=== PATIENT | female | born 1965 | race Two or more races ===

== ENCOUNTER 2017-03-29 18:49 | Emergency (ER) | payer MEDICAID ==
[~2017-03-29] VITALS: Ht 162.6 cm; Wt 83.9 kg
[~2017-03-29 18:49] MED LIST: CIPRO500 MG PO; CYCLOBENZAPRINE10 MG ORAL; KEFLEX500 MG ORAL; LOSARTAN POTASS50 MG ORAL; NORCO 5-325 TA1 EACH ORAL; OMEPRAZOLE20 M2 ORAL; PHENAZOPYRIDIN200 MG ORAL; PROZAC10 MG ORAL
--- NOTE | 2017-03-29 19:10 | Emergency Room Report ---
History of Present Illness General Chief Complaint: Abdominal Pain Source: Patient Present Illness HPI 51YOF without known PMHx presents with right lower pelvic, non-radiating, sharp , 8/10, intermittent for 1 week. Assoc with vaginal bleeding last night (LMP was 1 year prior). No history of renal stones, uterine fibroids, ovarian cysts. No history of gall stones. Was tx for UTI 2 weeks prior with Cipro for 1 week. Allergies: Coded Allergies: No Known Allergies (Unverified , 05/07/15) Patient History Past Medical History: none Past Surgical History: none Pertinent Family History: none Social History: Denies: alcohol use, drug use, smoking Now: No Immunizations: UTD Reviewed Nursing Documentation: PMH: Agreed, PSxH: Agreed Nursing Documentation-PMH Hx Hypertension: Yes Hx Gastrointestinal Problems: Yes - Acid reflux, Review of Systems All Other Systems: negative except mentioned in HPI Physical Exam Vital Signs Date Time Temp Pulse Resp B/P Pulse Ox O2 Delivery O2 Flow Rate FiO2 03/29/17 18:51 97.9 64 14 128/71 98 Room Air Sp02 EP Interpretation: reviewed, normal General Appearance: normal inspection, well appearing, no apparent distress, alert, GCS 15, non-toxic Head: normocephalic, atraumatic Eyes: bilateral eye EOMI, bilateral eye PERRL ENT: normal ENT inspection, hearing grossly normal, normal voice Neck: normal inspection, full range of motion, supple, no bony tend Respiratory: normal inspection, lungs clear, normal breath sounds, no respiratory distress, no retraction, no wheezing Cardiovascular #1: regular rate, rhythm, no edema Gastrointestinal: normal inspection, normal bowel sounds, non tender, soft, no guarding, no hernia Genitourinary: no CVA tenderness Musculoskeletal: normal inspection, back normal, normal range of motion, Sepideh' s Sign negative Neurologic: normal inspection, alert, oriented x3, responsive, mechanical intern III-XII nml as tested, motor strength/tone normal, speech normal Psychiatric: normal inspection, judgement/insight normal, mood/affect normal Skin: normal inspection, normal color, no rash Lymphatic: normal inspection Medical Decision Making Diagnostic Impression: Primary Impression: Right sided abdominal pain Additional Impression: UTI (lower urinary tract infection) ER Course Right lower abd pain - Urine preg negative - UA: nitrite positive - Labs: No leuks. H&H stable - Pelvic sono: "complicated anatomy" per tech. "possible fibroid." No other acute abnormalities Likely recurrent or improperly treated UTI Rx Macrobid Followup with Urine Cx Recommend outpatient pelvic MRI DC home EKG Diagnostic Results Rate: normal Rhythm: NSR ST Segments: no acute changes ASA given to the pt in ED: No Rhythm Strip Diag. Results EP Interpretation: yes Rate: 75 Rhythm: NSR, no PVC's, no ectopy Last Vital Signs Date Time Temp Pulse Resp B/P Pulse Ox O2 Delivery O2 Flow Rate FiO2 03/29/17 18:51 97.9 64 14 128/71 98 Room Air Status: improved Disposition: HOME, SELF-CARE Scripts Nitrofurantoin Monohyd/M-Cryst* (MACROBID 100 MG*) 100 Mg Capsule 100 MG ORAL EVERY 12 HOURS for 7 Days, #14 CAP Prov: YAW HEWITT M.D. 03/29/17 YAW HEWITT M.D. March 29, 2017 19:10
[2017-03-29] MEDS ORDERED: Ketorolac 30mg Inj IV ONE (19:15)
[2017-03-29] MEDS ORDERED: Famotidine 20 MG/ 2ML VIAL IVP ONE (19:15)
[2017-03-29 19:39] LABS: BASOPHILS % (AUTO) 1.4 % (0.0-2.0); EOSINOPHILS % (AUTO) 1.9 % (0.0-3.0); MEAN CORPUSCULAR HGB CONC 36.5 G/DL (32.0-36.0); MEAN CORPUSCULAR VOLUME 85 FL (80-99); MEAN PLATELET VOLUME 7.3 FL (6.5-10.1); MONOCYTES % (AUTO) 10.7 % (1.0-10.0); NEUTROPHILS % (AUTO) 55.1 % (45.0-75.0); PLATELET COUNT 230 K/UL (150-450); RED BLOOD COUNT 4.59 M/UL (4.20-5.40); RED CELL DISTRIBUTION WIDTH 11.5 % (11.6-14.8); WHITE BLOOD COUNT 10.8 K/UL (4.8-10.8)
[2017-03-29 19:40] LABS: APPEARANCE,URINE CLEAR; KETONES,URINE NEGATIVE (NEGATIVE); LEUKOCYTE ESTERASE ,URINE 1+ (NEGATIVE); NITRITE,URINE POSITIVE (NEGATIVE); PH,URINE 6.5 (4.5-8.0); PROTEIN,URINE 1+ (NEGATIVE); UROBILINOGEN,URINE NORMAL MG/DL (0.0-1.0)
[2017-03-29] MEDS ORDERED: NITROFURANTOIN100 M2 ORAL (19:54)
[2017-03-29 19:57] LABS: ALANINE AMINOTRANSFERASE 50 U/L (3-33); ALBUMIN/GLOBULIN RATIO 1.4 (1.0-2.7); ANION GAP 13 (5-15); ASPARTATE AMINO TRANSFERASE 32 U/L (5-40); BACTERIA,URINE FEW /HPF; CALCIUM 9.5 mg/dL (8.6-10.2); CARBON DIOXIDE 26 mEQ/L (20-30); CHLORIDE 100 mEQ/L (98-107); CREATININE 0.8 mg/dL (0.5-0.9); GLOMERULAR FILTRATION RATE > 60 mL/min (>60); HEMOLYSIS 4; LIPASE 35 U/L (< 60); SODIUM 139 mEQ/L (135-145); SQUAMOUS EPITHELIAL CELL,UR FEW /LPF (NONE/OCC); TOTAL PROTEIN 7.2 g/dL (6.6-8.7); WBC,URINE 0-2 /HPF (0 - 2)
[2017-03-29 20:45] VITALS: BP 127/82
[2017-03-29 20:50] VITALS: BP 127/82
--- NOTE | 2017-03-30 12:47 | Diagnostic Imaging Report ---
Indication: PAIN right-sided pelvic pain x1 week Technique: Transabdominal and transvaginal images Comparison: None Findings: Uterus measures 4.6 cm length by 2.3 cm AP. Endometrium measures 5 mm thick. There is questionably a fibroid with extensive rim calcification in the posterior fundus, likely subserosal. Other areas of heterogeneous echogenicity within the uterine fundus could represent fibroids. Nonspecific calcifications are seen in the endocervical canal. Neither ovary could be demonstrated. No gross adnexal mass. No free cul-de-sac fluid. Impression: Limited exam, as described. Nonvisualization of the bilateral ovaries. No gross adnexal mass Suspect multiple calcified uterine fibroids
== END 2017-03-29 20:50 | disposition home or self-care (01) ==
LOC: EMR 19:21
DX: R10.31 Right lower quadrant pain (principal); N39.0 Urinary tract infection, site not specified; I10 Essential (primary) hypertension; K21.9 Gastro-esophageal reflux disease without esophagitis
CPT/HCPCS: 36415; 76830; 76856; 80053; 81003; 81025; 83690; 85025; 93005; 96374; 96375; 99284; J1885; J2405; S0028

== ENCOUNTER 2017-04-09 11:26 | Emergency (ER) | payer MEDICAID ==
[~2017-04-09] VITALS: Ht 162.6 cm; Wt 83.9 kg
[~2017-04-09 11:26] MED LIST changes: +NITROFURANTOIN100 M2 ORAL
[2017-04-09 11:45] VITALS: BP 129/74
--- NOTE | 2017-04-09 11:53 | Emergency Room Report ---
History of Present Illness General Chief Complaint: Abdominal Pain Source: Patient Present Illness HPI Patient is a 51-year-old female presented after having increased lower abdominal pain associated with some dysuria. Patient stated that she had recently been treated with oral Macrobid for urinary tract infection. She reported having sharp intermittent pain. The patient had been seen at this emergency department approximately 2 weeks ago and had pelvic ultrasound which showed multiple calcified fibroids. The patient had not followed up with her doctor. She had not been vomiting. She denied any black or bloody stools. Allergies: Coded Allergies: No Known Allergies (Unverified , 05/07/15) Patient History Past Medical History: see triage record Last Menstrual Period: 01/2017 menopausal Now: No Reviewed Nursing Documentation: PMH: Agreed, PSxH: Agreed Nursing Documentation-PMH Past Medical History: No History, Except For Hx Hypertension: Yes Hx Gastrointestinal Problems: Yes - Acid reflux, Review of Systems All Other Systems: negative except mentioned in HPI Physical Exam Vital Signs Date Time Temp Pulse Resp B/P Pulse Ox O2 Delivery O2 Flow Rate FiO2 04/09/17 11:36 97.9 82 16 126/71 97 Room Air Sp02 EP Interpretation: reviewed, normal General Appearance: normal inspection, well appearing, no apparent distress, alert, GCS 15 Head: atraumatic ENT: normal ENT inspection, hearing grossly normal, normal voice Neck: normal inspection, full range of motion, supple, no bony tend Respiratory: normal inspection, lungs clear, normal breath sounds, no respiratory distress, no retraction, no wheezing Cardiovascular #1: regular rate, rhythm, no edema Gastrointestinal: normal inspection, normal bowel sounds, non tender, soft, no guarding, no hernia Genitourinary: no CVA tenderness Musculoskeletal: normal inspection, back normal, normal range of motion Neurologic: normal inspection, alert, oriented x3, responsive, speech normal Psychiatric: normal inspection, judgement/insight normal, mood/affect normal Skin: normal inspection, normal color, no rash Medical Decision Making Diagnostic Impression: Primary Impression: Back pain Additional Impression: Fibroid uterus ER Course Patient's a 51-year-old female with low abdominal pain. Differential diagnoses included ischemic bowel, appendicitis, perforated viscus, abdominal aortic aneurysm, inferior myocardial infarction, viral gastroenteritis. Because of complexity of patient's case laboratory studies were ordered. I laboratory testing was unremarkable. Patient was noted to have normal white blood count as well as adequate hemoglobin. Patient was noted to have recent ultrasound which was unremarkable except for some fibroid uterus . The patient was noted to have had prior CT imaging which showed some lumbar degenerative changes. The patient was advised to take ibuprofen for pain. She was advised followup with her [employer] in the next one to 2 days Labs Test 04/09/17 11:46 04/09/17 12:03 Urine Color Pale yellow Urine Appearance Clear Urine pH 6 (4.5-8.0) Urine Specific [place] 1.010 (1.005-1.035) Urine Protein Negative (NEGATIVE) Urine Glucose (UA) Negative (NEGATIVE) Urine Ketones Negative (NEGATIVE) Urine Occult Blood Negative (NEGATIVE) Urine Nitrite Negative (NEGATIVE) Urine Bilirubin Negative (NEGATIVE) Urine Urobilinogen Normal MG/DL (0.0-1.0) Urine Leukocyte Esterase 1+ (NEGATIVE) Urine RBC 0-2 /HPF (0 - 2) Urine WBC 2-4 /HPF (0 - 2) Urine Squamous Epithelial Cells Few /LPF (NONE/OCC) Urine Bacteria Few /HPF (NONE) White Blood Count 8.1 K/UL (4.8-10.8) Red Blood Count 4.98 M/UL (4.20-5.40) Hemoglobin 14.1 G/DL (12.0-16.0) Hematocrit 42.1 % (37.0-47.0) Mean Corpuscular Volume 84 FL (80-99) Mean Corpuscular Hemoglobin 28.4 PG (27.0-31.0) Mean Corpuscular Hemoglobin Concent 33.6 G/DL (32.0-36.0) Red Cell Distribution Width 12.0 % (11.6-14.8) Platelet Count 232 K/UL (150-450) Mean Platelet Volume 8.8 FL (6.5-10.1) Neutrophils (%) (Auto) 59.2 % (45.0-75.0) Lymphocytes (%) (Auto) 31.9 % (20.0-45.0) Monocytes (%) (Auto) 6.0 % (1.0-10.0) Eosinophils (%) (Auto) 1.9 % (0.0-3.0) Basophils (%) (Auto) 1.0 % (0.0-2.0) Sodium Level 136 mEQ/L (135-145) Potassium Level 3.6 mEQ/L (3.4-4.9) Chloride Level 96 mEQ/L (98-107) Carbon Dioxide Level 24 mEQ/L (20-30) Anion Gap 16 (5-15) Blood Urea Nitrogen 7 mg/dL (7-23) Creatinine 0.7 mg/dL (0.5-0.9) Estimat Glomerular Filtration Rate > 60 mL/min (>60) Glucose Level 162 mg/dL (74-106) Calcium Level 9.0 mg/dL (8.6-10.2) Total Bilirubin 0.5 mg/dL (0.0-1.2) Aspartate Amino Transf (AST/SGOT) 33 U/L (5-40) Alanine Aminotransferase (ALT/SGPT) 49 U/L (3-33) Alkaline Phosphatase 64 U/L (35-104) Total Protein 6.7 g/dL (6.6-8.7) Albumin 4.0 g/dL (3.5-5.2) Globulin 2.7 g/dL Albumin/Globulin Ratio 1.4 (1.0-2.7) Lipase 28 U/L (< 60) Chest X-Ray Diagnostic Results Chest X-Ray Ordered: No Last Vital Signs Date Time Temp Pulse Resp B/P Pulse Ox O2 Delivery O2 Flow Rate FiO2 04/09/17 11:45 98.1 86 15 129/74 98 Room Air Status: improved Disposition: HOME, SELF-CARE Condition: Stable Scripts Cyclobenzaprine Hcl* (FLEXERIL*) 10 Mg Tablet 10 MG ORAL TID Y for Muscle Spasm, #20 TAB Prov: Earl Edwards 04/09/17 Earl Edwards Apr 09, 2017 11:53
[2017-04-09] MEDS ORDERED: Morphine Sulfate 4mg/ml Inj IVP ONE (12:00)
[2017-04-09 12:07] LABS: APPEARANCE,URINE CLEAR; KETONES,URINE NEGATIVE (NEGATIVE); LEUKOCYTE ESTERASE ,URINE 1+ (NEGATIVE); NITRITE,URINE NEGATIVE (NEGATIVE); PH,URINE 6 (4.5-8.0); PROTEIN,URINE NEGATIVE (NEGATIVE); UROBILINOGEN,URINE NORMAL MG/DL (0.0-1.0)
[2017-04-09 12:16] LABS: BACTERIA,URINE FEW /HPF; RBC,URINE 0-2 /HPF (0 - 2); SQUAMOUS EPITHELIAL CELL,UR FEW /LPF (NONE/OCC)
[2017-04-09 12:17] LABS: EOSINOPHILS % (AUTO) 1.9 % (0.0-3.0); LYMPHOCYTES % (AUTO) 31.9 % (20.0-45.0); MEAN CORPUSCULAR HEMOGLOBIN 28.4 PG (27.0-31.0); MEAN CORPUSCULAR HGB CONC 33.6 G/DL (32.0-36.0); MEAN CORPUSCULAR VOLUME 84 FL (80-99); MEAN PLATELET VOLUME 8.8 FL (6.5-10.1); NEUTROPHILS % (AUTO) 59.2 % (45.0-75.0); PLATELET COUNT 232 K/UL (150-450); RED BLOOD COUNT 4.98 M/UL (4.20-5.40); WHITE BLOOD COUNT 8.1 K/UL (4.8-10.8)
[2017-04-09 12:36] LABS: ALANINE AMINOTRANSFERASE 49 U/L (3-33); ALBUMIN/GLOBULIN RATIO 1.4 (1.0-2.7); ANION GAP 16 (5-15); ASPARTATE AMINO TRANSFERASE 33 U/L (5-40); CARBON DIOXIDE 24 mEQ/L (20-30); CHLORIDE 96 mEQ/L (98-107); CREATININE 0.7 mg/dL (0.5-0.9); GLOMERULAR FILTRATION RATE > 60 mL/min (>60); HEMOLYSIS 5; LIPASE 28 U/L (< 60); POTASSIUM 3.6 mEQ/L (3.4-4.9); SODIUM 136 mEQ/L (135-145); TOTAL PROTEIN 6.7 g/dL (6.6-8.7)
[2017-04-09 13:32] VITALS: BP 122/75
[2017-04-09] MEDS ORDERED: CYCLOBENZAPRINE10 MG ORAL (13:32)
[2017-04-09 13:38] VITALS: BP_SYST 132; BP_SYST 133; BP_DIAS 74; BP_DIAS 81
[2017-04-09 13:43] VITALS: BP 133/81
== END 2017-04-09 13:44 | disposition home or self-care (01) ==
LOC: EMR 11:50
DX: D25.9 Leiomyoma of uterus, unspecified (principal); M54.9 Dorsalgia, unspecified; R30.0 Dysuria; I10 Essential (primary) hypertension
CPT/HCPCS: 36415; 80053; 81003; 83690; 85025; 96374; 96375; 99284; J2270; J2405

== ENCOUNTER 2017-10-26 11:14 | Emergency (ER) | payer MEDICAID ==
[~2017-10-26] VITALS: Ht 162.6 cm; Wt 74.8 kg
--- NOTE | 2017-10-26 11:41 | Emergency Room Report ---
History of Present Illness General Chief Complaint: Flu Like Symptoms Source: Patient, Medical Record Present Illness HPI Patient's been ill for over a week. She got ill for about 3 days in the beginning. She transferred this to her and he has been seen at the hospital twice. She got better, but now for 48 hours she's been coughing up yellow phlegm with muscle aches and fevers. She's been taking, Motrin for this. No flu vaccination. Her son is also sick since last night. No NVD, dysuria, rashes, sore throat, headache, change in bowels. Allergies: Coded Allergies: No Known Allergies (Unverified , 05/07/15) Patient History Past Medical History: see triage record Social History: Denies: smoking Social History Narrative Last Menstrual Period: menopause Reviewed Nursing Documentation: PMH: Agreed, PSxH: Agreed Nursing Documentation-PMH Past Medical History: No History, Except For Hx Hypertension: Yes Hx Gastrointestinal Problems: Yes - Acid reflux, Review of Systems All Other Systems: negative except mentioned in HPI Physical Exam Vital Signs Date Time Temp Pulse Resp B/P (MAP) Pulse Ox O2 Delivery O2 Flow Rate FiO2 10/26/17 11:27 99.0 93 18 131/78 97 Room Air General Appearance: well appearing, no apparent distress Head: normocephalic, atraumatic Eyes: bilateral eye normal inspection, bilateral eye PERRL ENT: hearing grossly normal, normal pharynx, normal voice, moist mucus membranes Neck: full range of motion, supple Respiratory: chest non-tender, lungs clear, no respiratory distress, speaking full sentences Cardiovascular #1: regular rate, rhythm Gastrointestinal: normal inspection Musculoskeletal: digits/nails normal, gait/station normal, normal range of motion, no calf tenderness Neurologic: alert, oriented x3, normal gait, grossly normal Psychiatric: mood/affect normal Skin: no rash Medical Decision Making Diagnostic Impression: Primary Impression: Post- influenza bronchitis ER Course Patient presents with productive cough post initial infection 1 week ago with family members who are also ill. DDx; influenza, other viral process, post influenza URI, pna. Due to the timing and course, this is most c/w post influenza URI. Based on exam Xray not indicated. However, due to the possiblity of post influenza infection, antibiotics are indicated. She asked for tamiflu and I explained that this was probably indicated at beginning of the illness. Patient stable for outpatient observation and treatment. Last Vital Signs Date Time Temp Pulse Resp B/P (MAP) Pulse Ox O2 Delivery O2 Flow Rate FiO2 10/26/17 12:00 98.1 90 16 130/72 97 Room Air Status: unchanged Disposition: HOME, SELF-CARE Condition: Stable Scripts Promethazine HCl/Codeine (Prometh-Codein 6.25-10 mg/5 ml) 5 Ml Syrup 5 ML PO Q6HR Y for cough or pain, #90 ML Prov: Bruno Alatorre M.D. 10/26/17 Azithromycin* (ZITHROMAX*) 250 Mg Tablet 250 MG ORAL DAILY, #6 TAB 0 Refills Take two tables once daily for 1 day, then one tablet once daily for 4 days. Prov: Bruno Alatorre M.D. 10/26/17 Bruno Alatorre M.D. Oct 26, 2017 11:41
[2017-10-26] MEDS ORDERED: PROMETH-CODEIN 65 ML PO (11:45)
[2017-10-26] MEDS ORDERED: ZITHROMAX250 MG ORAL (11:45)
[2017-10-26 12:00] VITALS: BP 130/72
== END 2017-10-26 12:03 | disposition home or self-care (01) ==
LOC: EMR 11:54
DX: J40 Bronchitis, not specified as acute or chronic (principal); K21.9 Gastro-esophageal reflux disease without esophagitis; I10 Essential (primary) hypertension
CPT/HCPCS: 99283